=== PATIENT | female | born 1945 | race Caucasian/White ===

== ENCOUNTER 2019-08-23 00:38 | Outpatient (CLI) | payer MEDICARE, BC, SELFPAY ==
--- NOTE | 2019-08-23 09:50 | DI.MAMMO_ITS ---
EXAM: MAMMO SCREENING CLINICAL HISTORY: SCREENING, Z12.31 TECHNIQUE: Mammograms were interpreted according to the usual protocol including computer analysis w [employer] CAD system, tomosynthesis and C-view imaging. COMPARISON: 2009 and 2016 FINDINGS: The breasts are composed of heterogeneously dense fibroglandular densities, Breast Density category C . No suspicious masses or suspicious microcalcifications are seen. No skin thickening or abnormal axillary lymph nodes are seen. A biopsy marker clip is again seen in the superior right breast. There has been no significant change from prior exams. IMPRESSION: BIRADS Category 1, negative mammogram. Yearly screening mammography is recommended. BREAST DENSITY: The mammogram demonstrates the patient's breast tissue is dense. Dense breast tissue is very common and is not abnormal but dense breast tissue can make it harder to find cancer on a ma mmogram. Also, dense breast tissue may increase breast cancer risk. This information about the result of the mammogram report was provided to the patient to raise their awareness. Use this report when y ou speak with the patient about their risks for breast cancer, which includes their family history. A t that time, you may recommend additional screening tests (Ultrasound or MRI) as they might be useful based on their risk. A negative radiographic report should not delay biopsy if a dominant or clinically suspicious mass is present. Up to ten percent of cancers are not identified on mammography. A negative report may reinforce clinical impression. Adenosis and dense breasts may obscure an underlying neoplasm. False positive reports average 6 to 10%.
== END 2019-08-23 00:58 ==
PROVIDERS: PCP Nurse Practitioner; Visit Provider Nurse Practitioner Family
DX: Z12.31 Encounter for screening mammogram for malignant neoplasm of breast (principal)
CPT/HCPCS: 77063; 77067

== ENCOUNTER 2020-02-06 14:45 | Outpatient (REF) | payer MEDICARE, BC, SELFPAY ==
[2020-02-06 20:11] LABS: HCT 39.4 % (36.0-46.0); MCH 28.7 pg (27.0-33.0); MPV 12.4 fL (8.0-11.0); Platelet Count 238 10^3/uL (130-400); RBC 4.53 10^6/uL (3.93-5.22); RDW 12.5 % (11.7-14.6); WBC 4.74 10^3/uL (4.4-10.8)
[2020-02-06 20:49] LABS: ALT 24 U/L (14-59); AST 22 U/L (15-37); Albumin 3.9 g/dL (3.4-5.0); Alkaline Phosphatase 115 U/L (46-116); Anion Gap 9.3 mmol/L (3-11); BUN 15 mg/dL (7-18); Bilirubin, Total 0.3 mg/dL (0.2-1.0); CO2 25.7 mmol/L (21.0-32.0); CREATININE 0.77 mg/dL (0.55-1.02); Calcium 9.1 mg/dL (8.5-10.1); Chloride 103 mmol/L (98-107); Glucose 94 mg/dL (74-106); Potassium 4.4 mmol/L (3.5-5.1); Sodium 138 mmol/L (136-145); TSH (W/Ref FT4) 2.19 uIU/mL (0.36-3.74)
[2020-02-08 14:58] LABS: SARS-CoV-2 RNA Undetected (Undetected); SARS-CoV-2 Specimen Source Nasopharynx
== END 2020-02-06 15:05 ==
LOC: NCHCN 14:45
PROVIDERS: PCP Nurse Practitioner; Visit Provider Nurse Practitioner Family
DX: R53.83 Other fatigue (principal)
CPT/HCPCS: 80053; 85027; U0003; 84443

== ENCOUNTER 2020-04-10 01:12 | Outpatient (CLI) | payer MEDICARE, BC, SELFPAY ==
--- NOTE | 2020-04-10 09:10 | DI.RAD_ITS ---
EXAM: XR HIP PELVIS ADULT BL CLINICAL HISTORY: BILAT OA,M16.0 TECHNIQUE: COMPARISON: No exams were available for comparison FINDINGS: Three views were obtained. There is moderate narrowing of the cartilaginous joint spaces of both hip s, left greater than right. There are moderate marginal osteophytes of the acetabula and femoral hea ds bilaterally. There is subchondral sclerosis femoral heads bilaterally and there is some roughenin g of the articular cortex of the left femoral head. There is cyst formation of the left femoral head and acetabulum. IMPRESSION: Moderate degenerative changes right hip, moderate to severe DJD left hip. RADIATION DOSE DELIVERED: Total DLP
--- NOTE | 2020-04-10 09:19 | DI.RAD_ITS ---
EXAM: XR LUMBAR SPINE COMPLETE CLINICAL HISTORY: ACUTE LOW BACK PAIN,M54.5 TECHNIQUE: COMPARISON: No exams were available for comparison FINDINGS: Six views were obtained. There are mild degenerative changes of both SI joints. The intervertebral disc spaces of the lumbar spine appear fairly well maintained. There are mild hypertrophic degenerat rogelio changes involving facet joints throughout the lumbar region bilaterally. Minimal endplate hypert rophic changes of the vertebral bodies noted as well. There is no evidence of spondylolysis or spond ylolisthesis. There is no evidence of fracture. IMPRESSION: Mild DJD of the lumbar spine. RADIATION DOSE DELIVERED: Total DLP
== END 2020-04-10 01:32 ==
PROVIDERS: PCP Nurse Practitioner; Visit Provider Internal Medicine
DX: M47.816 Spondylosis without myelopathy or radiculopathy, lumbar region (principal); M54.5 Low back pain; M16.0 Bilateral primary osteoarthritis of hip
CPT/HCPCS: 73521; 72110

== ENCOUNTER → 2020-05-12 08:56 | Outpatient (BNVA) | payer MEDICARE, BC, SELFPAY | PROVIDERS: PCP Nurse Practitioner; Referring Provider Nurse Practitioner; Visit Provider Student in an Organized Health Care Education/Training Program | DX: M16.12 Unilateral primary osteoarthritis, left hip (principal); M16.11 Unilateral primary osteoarthritis, right hip | CPT/HCPCS: 99203; 99214 ==

== ENCOUNTER 2020-06-17 14:14 | Outpatient (CLI) | payer MEDICARE, BC, SELFPAY ==
--- NOTE | 2020-06-17 14:15 | DI.RAD_ITS ---
EXAM: XR PELVIS AP CLINICAL HISTORY: preoperative. TECHNIQUE: 2D digital imaging was performed. COMPARISON: CR XR HIP PELVIS ADULT BL from 04/10/2020 FINDINGS: BONES: No acute fracture is present. No bony destructive lesion is seen. JOINTS: No dislocation present. Moderately severe degenerative changes are seen in the left hip myra cterized by joint space narrowing, subchondral sclerosis and cysts and periarticular spurring. Mild degenerative changes are seen in the right hip with joint space narrowing and subchondral sclerosis. The visualized sacroiliac joints and symphysis pubis are unremarkable. SOFT TISSUE: Normal. IMPRESSION: Stable degenerative changes of the hips bilaterally. DATA REPOSITORY: RADIATION DOSE DELIVERED:
== END 2020-06-17 14:34 ==
PROVIDERS: PCP Nurse Practitioner; Referring Provider Nurse Practitioner; Visit Provider Physician Assistant Surgical
DX: M16.0 Bilateral primary osteoarthritis of hip (principal)
CPT/HCPCS: 72170

== ENCOUNTER 2020-06-20 02:10 | Outpatient (CLI) | payer MEDICARE, BC, SELFPAY ==
[2020-06-20 11:09] LABS: HCT 42.7 % (36.0-46.0); HGB 13.8 g/dL (11.2-15.7); MCH 28.5 pg (27.0-33.0); MCHC 32.3 % (32.0-36.0); MCV 88.2 fL (80-95); MPV 11.7 fL (8.0-11.0); Platelet Count 254 10^3/uL (130-400); RBC 4.84 10^6/uL (3.93-5.22); RDW 12.4 % (11.7-14.6); RDW-SD 40.4 fL; WBC 5.66 10^3/uL (4.4-10.8)
[2020-06-20 11:48] LABS: Anion Gap 7.2 mmol/L (3-11); BUN 16 mg/dL (7-18); CO2 27.8 mmol/L (21.0-32.0); CREATININE 0.89 mg/dL (0.55-1.02); Calcium 9.7 mg/dL (8.5-10.1); Chloride 103 mmol/L (98-107); Glucose 95 mg/dL (74-106); Potassium 4.6 mmol/L (3.5-5.1); Sodium 138 mmol/L (136-145)
[2020-06-23 12:21] LABS: COVID-19 RT-PCR Result NEGATIVE (Negative)
== END 2020-06-20 02:30 ==
PROVIDERS: PCP Nurse Practitioner; Visit Provider Student in an Organized Health Care Education/Training Program
DX: M25.552 Pain in left hip (principal); M16.12 Unilateral primary osteoarthritis, left hip; Z11.59 Encounter for screening for other viral diseases; Z01.818 Encounter for other preprocedural examination; Z01.812 Encounter for preprocedural laboratory examination
CPT/HCPCS: 36415; 80048; 85027; 86850; 86900; 86901; U0003

== ENCOUNTER 2020-06-25 06:01 | Day surgery (SDC) | payer MEDICARE, BC, SELFPAY ==
[2020-06-25] VITALS (11 sets, daily range): BP systolic 87–122; BP diastolic 50–76; PULSE 60–72; RESP 14–18; TEMP 36.2–36.8; O2SAT 96–100
[2020-06-25] MEDS: Celecoxib 200 MG CAP 400 MG PO (06:34)
[2020-06-25] MEDS: Acetaminophen 500 MG TAB 1000 MG PO ×2 (06:34→13:14)
[2020-06-25] MEDS: Lactated Ringers 1,000 ML 80 ML IV (06:47)
--- NOTE | 2020-06-25 07:24 | PDOC.DSDIS_ITS ---
Discharge Plan Disposition Patient Disposition: HOME Condition: Good Discharge Details Reason For Visit: L RAÚL Attending Provider: Gage Vera Primary Care Provider: Hayley Castellon Home Meds and New Rx's Prescriptions: New celecoxib [Celebrex] 200 mg capsule 200 mg PO BID Qty: 60 RF: 0 aspirin 81 mg tablet,delayed release (DR/EC) 81 mg PO BID Qty: 60 RF: 0 acetaminophen [Tylenol Extra Strength] 500 mg tablet 500 mg PO Q6H PRNQty: 90 RF: 0 pantoprazole [Protonix] 40 mg tablet,delayed release (DR/EC) 40 mg PO DAILY Qty: 30 RF: 0 oxycodone 5 mg tablet 5 mg PO Q4H PRNQty: 18 RF: 0 docusate sodium [Colace] 100 mg capsule 100 mg PO BID PRNQty: 10 RF: 0 Continued loratadine 10 mg capsule 10 mg PO DAILY RF: 0 biotin 5,000 mcg Tablet, Sublingual 5,000 mcg SUBLINGUAL DAILY RF: 0 Discontinued aspirin 325 mg Tablet 325 mg PO DAILY PRNRF: 0 naproxen sodium [Aleve] 220 mg Tablet 220 mg PO BID PRNRF: 0 Discharge Instructions Additional Instructions: Total Hip Discharge Instructions Activity: The most important activity is to walk. You should try to take short walks a few times a day. You have no restrictions on movement or positioning, but do not try to force what you do. You will find some stiffness and weakness with hip flexion (lifting your knee). Do not try to strengthen this too early, continue to practice walking and stairs and this will come. - Outpatient physical therapy can be helpful to help return you to a normal gait and improve your flexibility and strength. This can start around 2 weeks. For some patients, it?s not necessary. Usually this is determined at the time of discharge or at the first post-operative visit. - You should wear the JOSR hose on both legs for 2 weeks. Dressing: Keep the surgical dressing in place for at least one week. After the first week it may be removed and replace with light gauze and tape or nothing. It may get wet after 3 days but avoid soaking the dressing. If it gets wet, just lightly pat dry. It is important to always keep some gauze between skin folds, especially when you are sitting. Spend some time with the wound exposed when you are lying flat as the incision does wrinkle onto itself. Medications: - You should take Tylenol and an anti-inflammatory Celebrex as your primary pain control medications. If the Celebrex is too expensive or not covered, please call the office for another alternative (Advil/Ibuprofen or Naproxen/Aleve). - You have been prescribed a stronger pain medication Oxycodone for breakthrough pain, take as needed as prescribed. - You have also been prescribed a stomach acid reduction agent Pantoprozole to help reduce stomach acid and reflux. - You will be taking Aspirin 81mg twice a day for DVT prevention unless instructed otherwise. - If you have constipation you should take Colace or Miralax (both [id number]). It takes most people 3-4 days to have a bowel movement. Follow-up: 2 weeks If you have any acute concerns or questions, please do not hesitate to contact the office at [phone]. You may contact Dr. Vera with any questions after hours through the hospital at [phone] or on his cell phone at [phone]. Referrals: Gage Vera MD [ [facility] STAFF PHYSICIAN] - Equipment/Supplies: Walker Activity:: Activity as Tolerated Diet:: As Tolerated Discharge Orders Discharge Orders: Discharge Order (Routine); Ordered 06/25/20 Ordered By: Gage Vera DS: Diagnosis Discharge Diagnosis (1) Degenerative joint disease of left hip: Status: Chronic
[2020-06-25] MEDS: ceFAZolin 2 GM/50 ML BAG IVPB (07:43)
[2020-06-25] MEDS: Ketorolac 30 MG/ML VIAL (08:42)
[2020-06-25] MEDS: Bupivacaine 0.25% Pres-Free 30 ML VIAL (08:42)
--- NOTE | 2020-06-25 08:45 | DI.RAD_ITS ---
EXAM: XR HIP LT IN OR CLINICAL HISTORY: Degenerative joint disease of left hip TECHNIQUE: 2D and realtime digital imaging was performed. CONTRAST MATERIAL: Refer to procedure report. COMPARISON: No exams were available for comparison FINDINGS: Fluoroscopy was provided for Dr. Vera during the performance of a left total hip arthroplasty. Please refer to the procedure report for complete details. Fluoro time: 38.4 seconds IMPRESSION: RADIATION DOSE DELIVERED:
--- NOTE | 2020-06-25 08:52 | ROE_ITS ---
Date of service: 06/25/20 Time of Service: 08:52 Operative Note Operative Note DATE OF PROCEDURE: 06/25/20 PRE-OP DIAGNOSIS: Left Hip Osteoarthritis POST-OP DIAGNOSIS: same PROCEDURE: Left Anterior Total Hip Arthroplasty SURGEON: Gage Vera PAMPHLET DISTRIBUTOR: Alyce Bryson ANESTHESIA: spinal ESTIMATED BLOOD LOSS: 250 PATHOLOGY: none sent COMPLICATIONS: Other (Partial tearing of the deep surface of the anterior aspect of the abductor musculature) Patient was transported to: PACU Patient's condition: stable Implants: 1. Depuy [place] Acetabular Component, 50mm 2. Depuy Acetabular Liner, [id number] 3. Depuy Corail Standard 125 Degree Collared Femoral Stem, Size 14 4. Depuy Altrx Ceramic Femoral Head, Size 32+5mm Indications: I have seen Oleg in clinic for symptoms of hip arthritis, confirmed with radiographic findings. Oleg has exhausted nonoperative methods and was having significant limitations in daily function and desired better function and less pain. I discussed the technical details of a hip replacement. I explained the risks of the procedure to include, but not limited to, bleeding, infection, pain, stiffness, fracture, damage to nerves and vessels, damage to muscles and tendons, loosening, instability, leg length inequality, need for repeat procedure, blood clot and cardiopulmonary demise. Despite these risks, she elected to proceed. Findings: There was significant signs of arthritis throughout the hip. Procedure Description: Oleg was greeted in the preoperative holding area where the correct side was identified and marked. The consent was reviewed with the patient and signed. The history and physical was updated. All questions were answered. She was taken back to the operating room. A spinal anesthestic was then administered. The feet were wrapped with cast padding and Coban and then placed into the boot liners and then into the boots. Care was taken to protect the skin and make sure the heels were fully down and the boots were stable. The patient was then positioned onto the HANA table. Both legs were held in a neutral position. SCDs were applied. The patient was then slid down onto a peroneal post. A preoperative AP pelvis was obtained to serve as a reference for determining leg lengths. Prophylactic antibiotics in the form of Cefazolin were administered. 1g of Tranxemic Acid was given intravenously within 30 minutes of incision. The left leg was then prepped with Chloraprep and draped in a standard fashion. A second prep with Chloraprep was performed prior to placement of a shower-curtain type drape with Iodine impregnated skin protection. A timeout to confirm correct identity, side and site, procedure, allergies, anesthesia, and medical concerns was performed. An obliquely oriented incision was made starting lateral to the ASIS and running distal over the Tensor Fascia Kanwal (TFL) muscle belly toward the fibular head, approximately 10cm. The skin and soft tissue was dissected sharply, through Moni?s fascia, and to the fascia of the TFL. With the fascia and superior border of the IT band identified, the fascia was incised with a new knife just above any perforators from the IT band. The TFL muscle belly was bluntly dissected away from the fascia and moved laterally. The fat between TFL and rectus was identified to ensure the dissection was not within the TFL. Blunt dissection created space between abductors and the capsule and retractor was placed over the lateral femoral neck. The fibers of the rectus femoris tendon were identified and these were freed from the anterior capsule. A second cobra retractor was placed around the medial femoral neck. The TFL was further retracted laterally to show the deep fascia. Careful dissection through this layer identified three main crossing vessels of the lateral femoral circumflex. These were cauterized in multiple locations and then cut without any noticeable bleeding. The TFL was further released bluntly from the deep fascia to expose anterior hip capsule and fat The Kishore orthopaedic retractor was then placed beneath the TFL and against sartorius and medial soft tissues to protect and retract the soft tissues. A T-capsulotomy was then performed starting at the superior lateral acetabulum and moving distally to the intertrochanteric ridge. These capsular flaps were tagged with a No. 1 Ethibond and elevated from within. The capsular flaps were released to the shoulder of the lateral neck and to the lesser trochanter to give excellent visualization of the proximal femur. A neck osteotomy was performed using an oscillating saw based on preoperative templates. This cut started in the shoulder and of the lateral neck and exited medially. The saw was at all times directed medially to avoid injury to the greater trochanter. 6cm of traction was applied to the leg and the osteotomy opened. The femoral head was removed with a corkscrew, making sure to protect the TFL on its exit. Traction was released after head removal. This was measured on the back table to determine the starting reamer size. Portions of the rectus obscuring visualization were minimally elevated off the superior acetabulum. An anterior retractor was placed over the anterior wall between capsule and labrum and attached to the Gripper retraction system. The femur was rotated to 90 degrees and medial capsule was fully released until the lesser trochanter was palpable and visible; the femur was returned to 30 degrees. A posterior retractor was placed similarly between capsule and labrum. This provided excellent visualization. The contents of the cotyloid fossa were removed with electrocautery and the labrum was removed with a knife. There was a notable floor osteophyte. There was significant chondromalacia of the superior acetabulum. Acetabular reaming began with a 47mm reamer. This first reaming was directed anterior to posterior and medial to get down to the true floor. This was inspected and reamed until the true floor was reached. The anterior retractor was then released and entry and exit was provided by traction on the capsular flaps. I then reamed sequentially up to a 50mm reamer where good fit was obt ained. The larger reamers were oriented based on anatomical reference of the anterior and lateral norris to ensure proper abduction and anteversion. Positioning and size was confirmed with the fluoroscopy. A 50mm Depuy [place] acetabular component was selected. The acetabulum was reamed around the periphery with the selected acetabular size to prevent a rim fit. The deep tissues were irrigated. The acetabular component was then impacted in a position of about 40-45 degrees of abduction and 15-20 degrees of anteversion, using the patient?s anatomy as the ultimate landmark. Fluoroscopy was used to confirm this. There was excellent central supply manager of the acetabular component and the inserting handle was removed. The acetabular liner, Depuy [id number] polyethylene liner, was inserted and lined u p with the tines of the acetabular component. There was no soft tissue interposition. The liner was then impacted into position and confirmed to be well-seated. A portion of the edouard-articular cocktail was then injected around the acetabulum into the capsule and periosteum. This cocktail consisted of 50cc of 0.25% Bupivicaine and 20cc of Exparel and 30mg of Ketorolac. The leg was rotated to 120 degrees. Any remaining medial capsule was released until the lesser trochanter was easily palpable. A retractor was placed medially. The lateral capsule was further released into the shoulder to allow access to the greater trochanter. A Loco retractor was placed over the greater trochanter which allowed the trochanter to flip in front of the capsule for excellent exposure. The leg was brought down into maximal extension and 20 degrees of adduction while ensuring there was no impingement on the acetabulum. Any remnant capsule within the trochanter was released. Piriformis and obt urator externis were identified and protected. There was excellent access to the proximal femur. The lateral neck remnant was removed with a rongeur. A blunt canal probe was used to identify the canal and trajectory for later broaching. A box osteotome initiated the broach course. A small curved rasp and a curved curette were used to work laterally. Broaching then began with a size 8 Corail broach. This was inserted manually around the trochanter and into the canal before mallet blows. The broach was seated to a few millimeters below the cut level based on the neck cut and the preoperative template. Sequential broaching was continued with the [employer] pneumatic broaching device until a tight fit was obtained with good rotational control of the femur. A trial standard 125 neck was inserted along with a +5 trial head. The leg was brought out of extension and adduction and then reduced with traction and internal rotation. The leg was stable anteriorly in a position of 30 degrees of extension and 90 degrees of external rotation. Fluoroscopy was used to ensure there was no fracture and the stem was seated well. Leg lengths were checked with an AP pelvis and pelvic reference points. [employer] navigation system was used to confirm appropriate positioning and leg length and offset. Once content with the desired offset and leg lengths, the leg was brought back into extension, external rotation and adduction. The periosteum and surrounding tissue was injected with remaining portion of the edouard-articular cocktail. The proximal femur was irrigated as well as the deep tissues. At this time it was noticed that the deep aspect of the abductor musculature had a tear, likely from the Loco retractor. The more superficial portions of the muscle and the tendon attachments to the greater trochanter were intact. The muscel was not significantly deranged but had a break in the muscle fibers which remained adherent to the more superficial fibers so these were left in place. The Mpayyuy Corail standard collared 125 degree stem, size 14, was then manually inserted into the proximal femur making sure to control rotation. It was then malleted into position with light blows, giving breaks to allow bone expansion and decrease risk of fracture. The selected Depuy Altrx Ceramic Head, size 32+5mm, was then placed onto the clean and dry trunnion and secured with impaction onto the tapered fit. The leg was brought back out of extension and adduction and reduced with traction and internal rotation. Stability was confirmed with no shuck at 90 degrees of external rotation and 30 degrees of extension. No impingement through range of motion arc. Final x-ray images were obtained with fluoroscopy to confirm adequate positioning and no intraoperative fracture. The deep tissues were thoroughly irrigated with Irrisept chlorhexadine solution. The second dose of TXA 1g was administered intravenously.The capsule was then reapproximated with the previously placed Ethibond sutures. The TFL fascia was finally closed with a No. 2 Stratafix, barbed suture. Deep tissues were then reapproximated with 0 Vicryl and a running 2-0 Vicryl. The skin was closed with a running 4-0 Monocryl in a subcuticular fashion. This was reinforced with skin glue. A Mepilex silver dressing was applied. At the end of the case, all counts were correct. Oleg was transferred to the hospital bed without difficulty and suffering some partial tearing of the deep abductors which should have little functional consequence. Oleg has a good prognosis. Physical therapy will start today and without restrictions, weight-bearing as tolerated. Aspirin 81mg BID will be used for DVT prophylaxis.
[2020-06-25] MEDS: fentaNYL 100 MCG/2 ML VIAL IVP (09:39)
[2020-06-25] MEDS: oxyCODONE 5 MG TAB PO (10:47)
--- NOTE | 2020-06-25 11:33 | IN_ITS ---
Date of service: 06/25/20 Time of Service: 11:33 PT Notes Visit Reasons: L RAÚL Physical Therapy Inpatient Initial Evaluation Date: 06/25/2020 Referring Doctor: Gage Vera MD PT Orders: PT CONSULT: Status post Ortho surgery Precautions: Fall. Standard. WBAT on the left LE. Patient Profile/Admitting Diagnosis: Oleg is a 74-year-old female with degenerative joint disease of the left hip and is status post left anterior total hip arthroplasty on postoperative day 0. PMHX: Medical History Degenerative joint disease of left hip Degenerative joint disease of right hip Social History/Home Situation: Patient lives with son and son's family in a mother?in?law apartment in [place], [place] with no steps to enter. She does say that she has 3 steps to get into the living room of his son's house with one rail to hold onto. She is independent with all aspects of ADLs prior to surgery. Equipment Owned/DME: Has a 4-wheeled walker Subjective: Pleasant and cooperative. Agreeable to PT consult. Stated that she has some remaining numbness in bilateral gluteal areas and her thighs. Reports discomfort in the inner area of her left thigh. Complained of sudden cons iderable lightheadedness when she stood up and walked from bed to reclining chair. Agreeable to being seen again later in the afternoon for longer distance walking and stair negotiation. Objective: General Observation: Supine in bed. Nurse Victoria present throughout evaluation. IV access in left UE. Leeroy Ag dressing over surgical incision. Mental Status: Alert and oriented x4 Pain: Reports some discomfort in the left hip with weight bearing Vital Signs: Blood pressure became soft when patient attempted to stand up from sitting with systolic blood pressure in the low 90s and diastolic blood pressure in the mid 70s as measured manually by nurse Victoria ROM: Right Upper Extremity: Shoulder Flexion WFL. Shoulder abduction WFL. Elbow flexion WFL. Wrist flexion WFL. Opening and closing of hand WFL. Left Upper Extremity: Shoulder Flexion WFL. Shoulder abduction WFL. Elbow flexion WFL. Wrist flexion WFL. Opening and closing of hand WFL. Right Lower Extremity: Hip flexion WFL. Hip abduction WFL. Knee flexion WFL. Ankle dorsiflexion WFL. Ankle plantarflexion WFL. Left Lower Extremity: Hip flexion WFL. Hip abduction WFL. Knee flexion WFL. Ankle dorsiflexion WFL. Ankle plantarflexion WFL. Strength: Right Upper Extremity: Shoulder flexors 5/5. Shoulder abductors 5/5. Elbow flexors 5/5. Elbow extensors 5/5. Cutter Hot Knife strong. Left Upper Extremity: Shoulder flexors 5/5. Shoulder abductors 5/5. Elbow flexors 5/5. Elbow extensors 5/5. Cutter Hot Knife strong. Right Lower Extremity: Hip flexors 5/5. Hip abductors 5/5. Knee flexors 5/5. Knee extensors 5/5. Ankle dorsiflexors 5/5. Ankle plantarflexors 5/5. Left Lower Extremity: Hip flexors 4/5. Hip abductors 4/5. Knee flexors 4/5. Knee extensors 4/5. Ankle dorsiflexors 5/5. Ankle plantarflexors 5/5. Sensation: Intact as to pain and pressure on bilateral lower extremities. Bed Mobility/Transfers: Supine to sit SBA with HOB 30 degrees Sit to stand minimal assist with complaints of increased lightheadedness upon standing up Stand to sit minimal assist with complaints of increased lightheadedness upon standing up Chair to bed minimal assist with complaints of increased lightheadedness upon standing up Gait: Guided patient through level surface ambulation of up to 12 feet using a front wheel walker with WBAT on the left LE requiring minimal assist with step through gait pattern but with with complaints of increased lightheadedness and with decreased bony. Ambulation distance limited to a very short one due to reduction in blood pressure. Patient is agreeable to having a second PT visit this afternoon for ambulation in the hallway and with stairs prior to discharge. THERA EX: Instructed patient on seated level exercises consisting of LAQs x15, seated hip flexion x 15, seated hip abduction without increase in discomfort or pain. Balance: Static Sitting: Normal Dynamic Sitting: Normal Static Standing: Fair Dynamic Standing: Fair Special Tests: Mobility Limitations Standardized Measure [facility] AM-PAC 6 clicks Basic Mobility Inpatient Short Form: Raw Score: 20 CMS Score: 36% deficit Informed Consent/Education: Patient instructed in purpose of PT consult and plan of care. Assessment: Oleg requires the use of a front wheeled walker for all transfer and ambulation task performance in order to maximize independence and reduce fall risk at home. She will have very good support from her family and friends as she recovers. She will benefit from outpatient physical therapy services in order to facilitate return to independent mobility ADL performance without an assistive device and for rehabbing of the left hip postop. Patient presents with clinical signs and symptoms consistent with current/admitting diagnoses that have resulted to mobility limitations, gait instability, generalized weakness, and impairment of motor control as demonstrated by the following impairment level findings: 1. Decreased strength to left hip major muscle groups 2. Impaired standing balance 3. Impaired activity tolerance 4. Lightheadedness Impairments are contributing to the following functional limitations: 1. Inability to safely ambulate without assistive device and physical assistance 2. Increase completion time for mobility ADL performance 3. Increased fall risk 4. Inability to negotiate steps alone safely Patient is assessed as a 06408 moderate complexity based on the following: History: 74-year-old female with impairment level findings, functional limitations, and past medical history as indicated above Examination: Demonstrable impairment in strength, balance, and mobility level with underlying impairments and functional limitations as documented above Presentation:Evolving Decision Makin moderate complexity Goals: Goals X 1 more afternoon treatment session 1. Supine-Sit independent 2. Sit-Supine independent 3. Sit-Stand supervision 4. Stand-Sit supervision 5. Bed-Chair supervision 6. Chair-Bed supervision 7. Supervision gait on level surface with use of least restrictive device for at least 300 feet without report of pain nor dyspnea 8. Good static and dynamic standing balance/tolerance Plan of Care/Treatment Plan: Patient will be seen for 1 more treatment session prior to this afternoon's discharge Plan of care has been reviewed with the HEALTH PROFESSIONAL providing the service under Physical Therapy direction. Initiate Physical Therapy intervention for strengthening, bed mobility, transfers, gait, stairs, balance training, use of assistive device. DISCHARGE RECOMMENDATIONS: To home when medically cleared by orthopedic surgeon. Outpatient physical therapy services in order to facilitate return to premorbid independent level without an assistive device. TREATMENT CODE/TIME: 9716 2 x 30 minutes, 9753 0 x 12 minutes beginning at 11:33 AM. Thank you for the opportunity to participate in the care of this patient. Pebbles Abreu PT, DPT, CLT [facility] [place], [place]
--- NOTE | 2020-06-26 08:32 | PT.INTREAT ---
Date of service: 06/25/20 Time of Service: 13:30 PT Notes Visit Reasons: L RAÚL Inpatient Physical Therapy Treatment Note [facility] Date: 06/25/2020 PRECAUTIONS: Fall, WBAT L SUBJECTIVE: Oleg reports that she is feeling better and is not lightheaded. She is pleasant and agreeable to participating in PT. OBJECTIVE: PAIN: No c/o pain BED MOBILITY/TRANSFERS Sit-stand: S Stand-sit: S GAIT Assistive Device: FWW Weight bearing: WBAT L Assist: SBA Distance: 50' Deviation: Step-through THEREX: Patient was instructed in a LE strengthening program, while in a seated position, as per flow sheet. ASSESSMENT: Patient tolerated session well without complaint. She was able to tolerate a progression in gait training, with FWW support and SBA without c/o lightheadedness. PLAN: Discharge to home with FWW. TREATMENT CODE/TIME: 20 minutes; [id number]
--- NOTE | 2020-06-26 09:08 | PT.INDS ---
Date of service: 06/26/20 PT Notes Visit Reasons: L RAÚL Physical Therapy Inpatient Discharge Summary Date: 06/25/2020 Dates of service:06/25/2020 only This is a clinical summary of care provided on the duration of dates listed above. No charge was made in the completion of this documentation. Referring Doctor: Gage Vera MD PT Orders: PT CONSULT: Status post Ortho surgery Precautions: Fall. Standard. WBAT on the left LE. Patient Profile/Admitting Diagnosis: Oleg is a 74-year-old female with degenerative joint disease of the left hip and is status post left anterior total hip arthroplasty on postoperative day 0. PMHX: Medical History Degenerative joint disease of left hip Degenerative joint disease of right hip Social History/Home Situation: Patient lives with son and son's family in a mother?in?law apartment in [place], [place] with no steps to enter. She does say that she has 3 steps to get into the living room of his son's house with one rail to hold onto. She is independent with all aspects of ADLs prior to surgery. Equipment Owned/DME: Has a 4-wheeled walker Subjective: NT. See most recent MACHINE OPERATOR HOP PICKER notes. Objective: General Observation: NT. See most recent MACHINE OPERATOR HOP PICKER notes. Mental Status: NT. See most recent MACHINE OPERATOR HOP PICKER notes. Pain: NT. See most recent MACHINE OPERATOR HOP PICKER notes. ROM: Right Upper Extremity: Shoulder Flexion WFL. Shoulder abduction WFL. Elbow flexion WFL. Wrist flexion WFL. Opening and closing of hand WFL. Left Upper Extremity: Shoulder Flexion WFL. Shoulder abduction WFL. Elbow flexion WFL. Wrist flexion WFL. Opening and closing of hand WFL. Right Lower Extremity: Hip flexion WFL. Hip abduction WFL. Knee flexion WFL. Ankle dorsiflexion WFL. Ankle plantarflexion WFL. Left Lower Extremity: Hip flexion WFL. Hip abduction WFL. Knee flexion WFL. Ankle dorsiflexion WFL. Ankle plantarflexion WFL. Strength: Right Upper Extremity: Shoulder flexors 5/5. Shoulder abductors 5/5. Elbow flexors 5/5. Elbow extensors 5/5. Electric Motorman strong. Left Upper Extremity: Shoulder flexors 5/5. Shoulder abductors 5/5. Elbow flexors 5/5. Elbow extensors 5/5. Electric Motorman strong. Right Lower Extremity: Hip flexors 5/5. Hip abductors 5/5. Knee flexors 5/5. Knee extensors 5/5. Ankle dorsiflexors 5/5. Ankle plantarflexors 5/5. Left Lower Extremity: Hip flexors 4/5. Hip abductors 4/5. Knee flexors 4/5. Knee extensors 4/5. Ankle dorsiflexors 5/5. Ankle plantarflexors 5/5. Sensation: Intact as to pain and pressure on bilateral lower extremities. Bed Mobility/Transfers: Supine to sit supervision Sit to stand supervision Stand to sit supervision Chair to bed supervision Gait: Guided patient through level surface ambulation of up to 50 little concern feet using a front wheel walker with WBAT on the left LE requiring minimal assist with step through gait pattern but with with complaints of increased lightheadedness and with decreased bony. Ambulation distance limited to a very short one due to reduction in blood pressure. Patient is agreeable to having a second PT visit this afternoon for ambulation in the hallway and with stairs prior to discharge. Balance: Static Sitting: Normal Dynamic Sitting: Normal Static Standing: Fair Dynamic Standing: Fair Assessment: Oleg requires the use of a front wheeled walker for all transfer and ambulation task performance in order to maximize independence and reduce fall risk at home. She will have very good support from her family and friends as she recovers. She will benefit from outpatient physical therapy services in order to facilitate return to independent mobility ADL performance without an assistive device and for rehabbing of the left hip postop. Patient continues to present with clinical signs and symptoms consistent with current/admitting diagnoses that have resulted to mobility limitations, gait instability, generalized weakness, and impairment of motor control as demonstrated by the following impairment level findings: 1. Decreased strength to left hip major muscle groups 2. Impaired standing balance 3. Impaired activity tolerance Impairments are are continuing to contribute to the following functional limitations: 1. Inability to safely ambulate without assistive device very little progress min 2. Increase completion time for mobility ADL performance 3. Increased fall risk 4. Inability to negotiate steps alone safely Goals: Goals X 1 more afternoon treatment session 1. Supine-Sit independent MET 2. Sit-Supine independent MET 3. Sit-Stand supervision MET 4. Stand-Sit supervision MET 5. Bed-Chair supervision MET 6. Chair-Bed supervision MET 7. Supervision gait on level surface with use of least restrictive device for at least 300 feet without report of pain nor dyspnea NOT MET 8. Good static and dynamic standing balance/tolerance MET DISCHARGE RECOMMENDATIONS: To home when medically cleared by orthopedic surgeon. Outpatient physical therapy services in order to facilitate return to premorbid independent level without an assistive device. TREATMENT CODE/TIME: NE Thank you for the opportunity to participate in the care of this patient. Pebbles Abreu PT, DPT, CLT [facility] [place], [place]
== END 2020-06-25 17:12 | disposition home or self-care (01) ==
PROVIDERS: PCP Nurse Practitioner; Visit Provider Student in an Organized Health Care Education/Training Program
PROC: (CPT 27130; principal; 2020-06-25 07:30)
DX: M16.12 Unilateral primary osteoarthritis, left hip (principal); Z96.642 Presence of left artificial hip joint; M25.552 Pain in left hip; M96.820 Accidental puncture and laceration of a musculoskeletal structure during a musculoskeletal system procedure
CPT/HCPCS: 27130; 20985; C1776; 97162; 97530; 73501; J0690; J1100; J1885; J2405; J3010

== ENCOUNTER 2020-07-14 13:05 | Outpatient (CLI) | payer MEDICARE, BC, SELFPAY ==
--- NOTE | 2020-07-14 11:25 | DI.RAD_ITS ---
EXAM: XR HIP LT COMPLETE AP PELVIS CLINICAL HISTORY: f/u L RAÚL. TECHNIQUE: 2D digital imaging was performed. COMPARISON: CR XR PELVIS AP from 06/17/2020 FINDINGS: Stable position of the components of the recently placed left hip prosthesis. No fracture or looseni ng evident. IMPRESSION: DATA REPOSITORY: RADIATION DOSE DELIVERED:
== END 2020-07-14 13:25 ==
PROVIDERS: PCP Nurse Practitioner; Referring Provider Nurse Practitioner; Visit Provider Student in an Organized Health Care Education/Training Program
DX: Z96.642 Presence of left artificial hip joint (principal); Z47.1 Aftercare following joint replacement surgery
CPT/HCPCS: 73502

== ENCOUNTER 2021-06-22 08:53 | Outpatient (CLI) | payer MEDICARE, BC, SELFPAY ==
--- NOTE | 2021-06-22 08:45 | DI.RAD_ITS ---
Exam(s) XR HIP LT AP LAT ONLY EXAM: XR HIP LT AP LAT ONLY INDICATION: annual f/u L RAÚL. COMPARISON: CR XR HIP LT COMPLETE AP PELVIS from 07/14/2020 TECHNIQUE: 2D digital imaging was performed. FINDINGS: There has been no change in the alignment of the left hip prosthesis. There are no abnormal surround ing bony lucencies. DATA REPOSITORY: RADIATION DOSE DELIVERED:
== END 2021-06-22 08:54 | disposition home or self-care (01) ==
LOC: DIORS 08:53
PROVIDERS: PCP Nurse Practitioner; Referring Provider Nurse Practitioner; Visit Provider Student in an Organized Health Care Education/Training Program
DX: Z47.1 Aftercare following joint replacement surgery; Z96.642 Presence of left artificial hip joint
CPT/HCPCS: 99212; 73502

== ENCOUNTER → 2022-04-29 02:55 | Outpatient (CLI) | payer MEDICARE, BC, SELFPAY ==
--- NOTE | 2022-04-29 13:45 | DI.RAD_ITS ---
Exam(s) XR FOOT LT COMPLETE EXAM: XR FOOT LT COMPLETE CLINICAL HISTORY: LT FOOT PAIN, M79.672. TECHNIQUE: 2D digital imaging was performed of the left foot. Three images were obtained. AP, obli que and lateral views were obtained. COMPARISON: No exams were available for comparison FINDINGS: BONES: No acute fracture is present. No bony destructive lesion is seen. JOINTS: No dislocation present. SOFT TISSUE: Normal. IMPRESSION: No acute abnormality. DATA REPOSITORY: RADIATION DOSE DELIVERED:
--- NOTE | 2022-04-29 14:00 | DI.DEXA_ITS ---
Exam(s) XR DEXA BONE DENSITY W/WO NACHO EXAM: XR DEXA BONE DENSITY W/WO NACHO CLINICAL HISTORY: ASYMPTOMATIC POSTMENOPAUSAL STATUS, Z78.0 TECHNIQUE: COMPARISON: Comparison examination is 08/17/2016. FINDINGS: Lateral Spine Image: Unremarkable. No compression deformities identified. Right hip: Total T-Score: -2.8 Total Z-Score: -1.0 T- and Z-scores: Findings are consistent with osteoporosis and high fracture risk. Lumbar Spine: Total T-Score: -4.4 . this compares to -4.7 on the prior examination. Total Z-Score: -2.0 T- and Z-scores: Findings are consistent with osteoporosis. IMPRESSION: Findings of osteoporosis in the right hip and lumbar spine.
== END ==
PROVIDERS: PCP Nurse Practitioner; Visit Provider Nurse Practitioner Family
DX: Z78.0 Asymptomatic menopausal state (principal); Z13.820 Encounter for screening for osteoporosis; M81.0 Age-related osteoporosis without current pathological fracture; M79.672 Pain in left foot
CPT/HCPCS: 77080; 73630

== ENCOUNTER 2022-08-16 00:12 | Outpatient (CLI) | payer MEDICARE, BC, SELFPAY ==
--- NOTE | 2022-08-16 12:15 | DI.MAMMO_ITS ---
Exam(s) MAMMO SCREENING EXAM: MAMMO SCREENING CLINICAL HISTORY: SCREENING, Z12.31 TECHNIQUE: Mammograms were interpreted according to the usual protocol including computer analysis w Note[employer]ick CAD system, tomosynthesis and C-view imaging. COMPARISON: 2016 and 2019 FINDINGS: The breasts are composed of heterogeneously dense fibroglandular densities, Breast Density category C . No suspicious masses or suspicious microcalcifications are seen. A biopsy marker clip is again noted in the superior right breast. Vascular calcifications are noted. No skin thickening or abnormal axillary lymph nodes are seen. There has been no significant change from prior exams. IMPRESSION: BI-RADS Category 1, Negative mammogram. Yearly screening mammography is recommended. Breast Density Category C, heterogeneously Dense. The mammogram demonstrates the patient's breast tissue is dense. Dense breast tissue is very common a nd is not abnormal but dense breast tissue can make it harder to find cancer on a mammogram. Also, de nse breast tissue may increase breast cancer risk. This information about the result of the mammogram report was provided to the patient to raise their awareness. Use this report when you speak with the patient about their risks for breast cancer, which includes their family history. At that time, you may recommend additional screening tests (Ultrasound or MRI) as they might be useful based on their r isk. A negative radiographic report should not delay biopsy if a dominant or clinically suspicious mass is present. Up to ten percent of cancers are not identified on mammography. A negative report may reinforce clinical impression. Adenosis and dense breasts may obscure an underlying neoplasm. False positive reports average 6 to 10%.
== END 2022-08-16 00:32 ==
LOC: DI 00:13
PROVIDERS: PCP Nurse Practitioner Family; Visit Provider Nurse Practitioner Family
DX: Z12.31 Encounter for screening mammogram for malignant neoplasm of breast (principal); R92.8 Other abnormal and inconclusive findings on diagnostic imaging of breast
CPT/HCPCS: 77063; 77067

== ENCOUNTER 2023-01-27 19:40 | Outpatient (REF) | payer MEDICARE, BC, SELFPAY ==
[2023-01-27 17:16] LABS: Abs Immature Grans 0.01 10^3/uL (0.0-0.06); Absolute Lymphocyte Count 1.46 10^3/uL (1.2-3.4); Absolute Monocyte Count 0.55 10^3/uL (0.1-0.8); Absolute Neutrophil Count 3.83 10^3/uL (1.2-6.7); Basophils % 1.6; Eosinophils % 3.3; HCT 40.4 % (36.0-46.0); HGB 13.4 g/dL (11.2-15.7); Immature Grans % 0.2; Lymphocytes % 23.7; MCH 28.9 pg (27.0-33.0); MCHC 33.2 % (32.0-36.0); MCV 87 fL (80-95); MPV 12.3 fL (8.0-11.0); Monocytes % 8.9; Neutrophils % 62.3; Platelet Count 237 10^3/uL (130-400); RBC 4.63 10^6/uL (3.93-5.22); RDW 12.7 % (11.7-14.6); RDW-SD 40.5 fL; WBC 6.15 10^3/uL (4.4-10.8)
[2023-01-27 17:25] LABS: Iron 92 ug/dL (50-170); Total Iron Binding Capacity 315 ug/dL (250-450); Transferrin Sat 29 % (15-50)
[2023-01-27 17:46] LABS: Vitamin D 25 Total 25.5 ng/mL (30-100)
[2023-01-27 17:57] LABS: ALT 18 U/L (14-59); AST 16 U/L (15-37); Albumin 4.2 g/dL (3.4-5.0); Alkaline Phosphatase 107 U/L (46-116); Anion Gap 6.6 mmol/L (3-11); BUN 19 mg/dL (7-18); Bilirubin, Total 0.5 mg/dL (0.2-1.0); CO2 28.4 mmol/L (21.0-32.0); CREATININE 0.8 mg/dL (0.55-1.02); Calcium 9.2 mg/dL (8.5-10.1); Chloride 102 mmol/L (98-107); Estimated GFR 76.31 (mL/min/1.73m2); Ferritin 96 ng/mL (8-252); Glucose 83 mg/dL (74-106); Magnesium 2.1 mg/dL (1.8-2.4); Potassium 4.7 mmol/L (3.5-5.1); Sodium 137 mmol/L (136-145); TSH (W/Ref FT4) 2.86 uIU/mL (0.36-3.74); Total Protein 7.3 g/dL (6.4-8.2); Vitamin B12 237 pg/mL (193-986)
[2023-01-27 19:18] LABS: NT-proBNP 150 pg/mL (<300)
== END 2023-01-27 19:41 | disposition home or self-care (01) ==
LOC: NCHCN 19:40
PROVIDERS: PCP Nurse Practitioner Family; Visit Provider Nurse Practitioner Family
DX: R53.83 Other fatigue; R06.02 Shortness of breath; I47.1 Supraventricular tachycardia; M81.0 Age-related osteoporosis without current pathological fracture
CPT/HCPCS: 80053; 82306; 82607; 82728; 83540; 83550; 83735; 83880; 84443; 85025

== ENCOUNTER 2023-02-07 03:03 | Outpatient (CLI) | payer MEDICARE, BC, SELFPAY ==
[2023-02-07] MEDS: Inhaler, Assist Device 1 EACH MC (16:38)
[2023-02-07] MEDS: Albuterol HFA 18 GM 200 PUFF INH IH (16:38)
--- NOTE | 2023-02-08 10:21 | W.PFT ---
Date of service: 02/07/23 Time of Service: 15:19 Pulmonary Function Test Result Indications: Dyspnea Interpretation Spirometry: There is no airflow limitation. No significant bronchodilator response. Lung Volumes: Normal lung volumes Diffusion Capacity: Decreased diffusion Airway Pressure: Normal airways resistance. Impression Isolated diffusion deficit. This can represent emphysema, interstitial lung disease or pulmonary vascular disease (pulmonary hypertension). Clinical Correlation therefore is recommended.
== END 2023-02-07 03:04 | disposition home or self-care (01) ==
LOC: RT 03:03
PROVIDERS: PCP Nurse Practitioner Family; Visit Provider Nurse Practitioner Family
DX: R06.02 Shortness of breath (principal)
CPT/HCPCS: 94060; 94726; 94729

== ENCOUNTER 2023-02-09 11:50 | Outpatient (REF) | payer MEDICARE, BC, SELFPAY | END 2023-02-09 11:51 | disposition home or self-care (01) | LOC: NCHCN 11:50 | PROVIDERS: PCP Nurse Practitioner Family; Visit Provider Nurse Practitioner Family | DX: I95.1 Orthostatic hypotension (principal) | CPT/HCPCS: 82533 ==

== ENCOUNTER → 2023-03-10 02:53 | Outpatient (CLI) | payer MEDICARE, BC, SELFPAY ==
--- NOTE | 2023-03-10 10:35 | DI.US_ITS ---
APPROVED REPORT EXAM: Comprehensive 2D, Doppler, and color-flow Echocardiogram Patient Location: Out-Patient Wood Ski Maker: Royce Isaacs RDCS (AE) Indications: Orthostatic hypotension, SOB, fatigue Other Information Study Quality: Good Conclusion Normal left ventricular wall thickness and chamber size. Ejection fraction is 55 to 60%. Wall motio n is normal Normal right ventricular size and systolic function Left atrium is mildly dilated. Right atrial size is normal Normal mitral leaflets with mild prolapse. There is moderate mitral regurgitation Normal tricuspid valve with mild regurgitation. Estimated right ventricular systolic pressure is 22 mmHg Dilated ascending aorta measuring 4.1 cm Wall motion Left Ventricle Left ventricle is mildly dilated. The left ventricular systolic function is normal. The left ventricu lar ejection fraction is within the normal range. There is normal left ventricular wall thickness. Th ere is normal LV segmental wall motion. There is no ventricular septal defect visualized. LVEF is 55- 60%. Right Ventricle The right ventricle is normal size. The right ventricular systolic function is normal. The RVSP is 22 .3 mmHg. Atria The left atrium size is mildly dilated The right atrium size is normal. The interatrial septum is int act with no evidence for an atrial septal defect. Aortic Valve Aortic valve is trileaflet. There is no aortic valvular stenosis. Trace to mild aortic regurgitation . Mitral Valve The mitral valve is normal in structure. No evidence of mitral valve stenosis. Moderate mitral regurg itation. Mild mitral valve prolapse. Tricuspid Valve The tricuspid valve is normal in structure. There is no tricuspid valve stenosis. Mild tricuspid regu rgitation. Pulmonic Valve The pulmonary valve is normal in structure. There is no pulmonic valvular stenosis. Trace pulmonic re gurgitation. Great Vessels The aortic root is normal in size. The ascending aorta is moderately dilated. Aortic arch is normal i n caliber. IVC is normal in size and collapses >50% with inspiration. Pericardium There is no pericardial effusion. 2D Dimensions IVSD d PLAX 0.60 cm F: 0.6-1.0 Ao Root d 2.95 cm F: 2.7 - 3.3 LVPW d PLAX 0.65 cm F: 0.6 - 1.0 Ao Asc Diam d 4.10 cm F: 2.3 - 3.1 LVID d PLAX 5.47 cm F: 3.8 - 5.2 LVDs 3.73 cm F: 2.2 - 3.5 LV EF Teichholz 59.4 % FS 31.85 % LV EDV (Teich) 145.5 mL LV ESV (Teich) 59.2 mL Stroke Vol Index (Teich) 51.73 M-Mode TAPSE 2.20 cm (M/F) >1.7 Auto EF LV EDV A4C 81.4 mL LV EDV A2C LV EDV BP LV ESV A4C 35.6 mL LV ESV A2C LV ESV BP LVEF(%) A4C 56.3 % LVEF(%) A2C LVEF(%) BP LV SV A4C 45.8 ml LV SV A2C LV SV BP LV CO A4C 2.8 L/min LV CO A2C LV CO BP HR A4C 60.81 BPM HR A2C LV EDV Index (BP) LV Volumes - Method of Disks (Menjivar's) Single Plane 2D LV Volumes Biplane 2D LV Volumes LV EDV A2C 69.6 mL LV EDV BP Index LV ESV A2C 27.1 mL SV BP LVEF(%) A2C 61.1 % SV Index LA Volume LA Length A4C 5.4 cm LA Length A2C LA Area A4C s 13.58 cm2 LA Area A2C s LA Vol A4C A-L 28.87 mL LA Vol A2C A-L LA Vol Biplane A-L LA Vol A4C MOD 28.0 mL LA Vol A2C MOD LA Vol BP MOD RA Volume RA Area A4C 13.2 cm2 RA ESV A4C (A-L) 34.4mL RA Vol/BSA A4C A-L RA Length A4C 4.3 cm RA ESV A4C (MOD) 33.0mL LV Diastology MV E' medial 0.075 (>0.07 m/s) MV E Vmax 0.73 (0.4-1.3 m/s) MV E/E' MED 9.70 (<14) MV A Vmax 0.60 (0.4-1.3 m/s) MV E' lateral 0.077 (>0.1 m/s) E/A Ratio 1.2 MV E/E' LAT 9.48 (<14) MV E' Average 0.076 m/s MV E/E'(average) 9.59 Aortic Valve AoV Vmax 1.20 m/s LVOT Vmax 1.04 m/s AoV Peak Grad 27.6 mmHg LVOT Peak Grad 4.4 mmHg AoV Area (Vmax) 2.63 cm2 LVOT VTI 0.243 m AoV VTI 0.315 m LVOT Mean Grad 2.2 mmHg AoV Mean Librado. 0.77 m/s LVOT SV 73.21 mL AoV Mean Grad 2.8 mmHg LVOT Diam s 1.95 cm AoV Area (VTI) 2.32 cm2 AV Regurg Peak Gr. 49.50 mmHg Velocity Ratio 0.87 AR Decel [place] 0.8m/sec2 AR DT 4559 msec AR PHT 1322 msec AR Vmax 3.52 m/s Mitral Valve MV DT 215 (160-240 msec) MR Vmax 4.47 m/s MV Vmax TIPS 0.83 m/s MR VTI 1.572 m MV Mean Grad 1.0 (<2mmHg) MR Peak Grad 80.0 mmHg MV VTI 0.361 m MR Mean Grad 60.1 mmHg MR PISA Radius 0.67 cm MR Aliasing Velocity 0.30 m/s Pulmonary Valve PV Vmax 0.84 (0.5-1.5 m/s) RVOT Vmax 0.63 m/s PV Peak Grad 2.8 mmHg RVOT Peak Gr. 1.6 mmHg PV Mean Librado 0.60 m/s RVOT VTI 0.158 m PV Mean Grad 1.7 mmHg RVOT Mean Gr. 0.8 mmHg Tricuspid Valve RA Pressure 3.00 mmHg TR Vmax 2.19 m/s TR Peak Grad 19.2 mmHg RVSP (TR) 22.3 mmHg
--- NOTE | 2023-03-10 11:27 | DI.RAD_ITS ---
Exam(s) XR SHOULDER RT COMPLETE 2+V EXAM: XR SHOULDER RT COMPLETE 2+V CLINICAL HISTORY: RT SHOULDER PAIN, M25.511. TECHNIQUE: 2D digital imaging was performed of the right shoulder. Five images were obtained. AP, Grashey, Y-view and axillary views were obtained. COMPARISON: No exams were available for comparison FINDINGS: BONES: No acute fracture is present. No bony destructive lesion is seen. JOINTS: No dislocation present. The joint spaces are well maintained. SOFT TISSUE: Normal. IMPRESSION: Unremarkable radiographs of the right shoulder. If there is concern for internal derangement, an MRI should be considered for further evaluation. DATA REPOSITORY: RADIATION DOSE DELIVERED:
--- NOTE | 2023-03-10 11:27 | DI.RAD_ITS ---
Exam(s) XR CHEST 2V PA LATERAL EXAM: XR CHEST 2V PA LATERAL CLINICAL HISTORY: HYPOTENSION,I95.1,SOB, R06.02, FATIGUE,R53.83 TECHNIQUE: 2D digital imaging was performed of the chest. Two images were obtained. PA and lateral views were obtained. COMPARISON: No exams were available for comparison FINDINGS: MEDIASTINUM: Normal. HEART: Normal. PULMONARY VASCULATURE: Normal. LUNGS: Clear. PLEURAL SPACE: No pleural effusion or pneumothorax. BONE:Within normal limits for the patient's age. OTHER FINDINGS:Normal. IMPRESSION: No acute pulmonary findings. DATA REPOSITORY: RADIATION DOSE DELIVERED:
== END ==
PROVIDERS: PCP Nurse Practitioner Family; Visit Provider Nurse Practitioner Family
DX: I95.1 Orthostatic hypotension (principal); R06.02 Shortness of breath; R53.83 Other fatigue; M25.511 Pain in right shoulder
CPT/HCPCS: 93306; 71046; 73030

== ENCOUNTER 2023-03-31 05:19 | Outpatient (CLI) | payer MEDICARE, BC, SELFPAY ==
[2023-03-31] MEDS: Methacholine 100 MG VIAL IH (14:51)
--- NOTE | 2023-04-04 15:12 | W.PFT ---
Date of service: 03/31/23 Time of Service: 13:03 Pulmonary Function Test Result Indications: Dyspnea Interpretation Spirometry: No baseline airflow limitation. There was a decrease in FEV1 of 19% with administration of 16mg/mL methacholine Impression Negative methacholine challenge Clinical Correlation therefore is recommended.
== END 2023-03-31 05:20 | disposition home or self-care (01) ==
LOC: RT 05:19
PROVIDERS: PCP Nurse Practitioner Family; Visit Provider Physician Assistant Surgical
DX: R06.00 Dyspnea, unspecified (principal)
CPT/HCPCS: 94060; 94070; J7674

== ENCOUNTER → 2023-04-28 02:11 | Outpatient (CLI) | payer MEDICARE, BC, SELFPAY ==
--- NOTE | 2023-04-28 | DI.MRI_ITS ---
Exam(s) MR UPPER JOINT RT WO EXAM: MR UPPER JOINT RT WO CLINICAL HISTORY: RT SHOULDER PAIN, M25.511. TECHNIQUE: Multiplanar multisequence MRI was performed. COMPARISON: Plain films March 26 FINDINGS: BONES: Nondisplaced subacute fracture greater tuberosity. Marrow edema in the humeral head. JOINTS:The acromioclavicular joint is normal. The acromion is laterally downsloping. The glenohumer al joint is normal. TENDONS: Supraspinatus: High signal within distal anterior supraspinatus tendon without visible focal tear. Infraspinatus: Unremarkable. Subscapularis: Unremarkable. Teres [place]: Unremarkable. Biceps and [place]: Unremarkable. MUSCLES: Unremarkable. GLENOID LABRUM: Unremarkable on this noncontrast examination. SOFT TISSUES: Unremarkable. OTHER: Subacromial and subdeltoid bursae shows some fluid.. IMPRESSION: Nondisplaced subacute fracture at the greater tuberosity. Supraspinatus tendinosis. DATA REPOSITORY:
== END ==
PROVIDERS: PCP Nurse Practitioner Family; Visit Provider Nurse Practitioner Family
DX: S42.254A Nondisplaced fracture of greater tuberosity of right humerus, initial encounter for closed fracture (principal); R06.00 Dyspnea, unspecified; X58.XXXA Exposure to other specified factors, initial encounter
CPT/HCPCS: 73221

== ENCOUNTER → 2023-04-28 02:12 | Outpatient (CLI) | payer MEDICARE, BC, SELFPAY ==
--- NOTE | 2023-04-28 08:10 | DI.CT_ITS ---
Exam(s) CT CHEST WO EXAM: CT CHEST WO CLINICAL HISTORY: continued dyspnea,R06.00 TECHNIQUE: Imaging Protocol: Axial computed tomography images with coronal and sagittal reformatted images were created and reviewed CONTRAST MATERIAL: Intravenous: Omnipaque 350 Contrast volume:structured data ml. COMPARISON: CR XR CHEST 2V PA LATERAL from 03/10/2023 FINDINGS: Pulmonary parenchyma: No consolidation. No dominant measurable mass. Tracheobronchial tree: No bronchiectasis or mucous plugging. Mediastinum and [place]: No dominant adenopathy or fluid collection. Pleura: No effusion. No pneumothorax. Heart: The heart is not dilated. No coronary artery calcifications are seen. Aorta: Ascending aorta 4.2 cm. No visible atherosclerotic changes. Upper abdomen: Unremarkable. Bones: Degenerative changes in the spine. Soft tissues: Unremarkable. IMPRESSION: No acute abnormality. RADIATION DOSE DELIVERED: Total DLP DATA REPOSITORY: All CT scans at this facility are submitted to the National Radiology Data Registry (NRDR) Dose Index Registry (DIR) with the [employer] (A[employer]). RADIATION OPTIMIZATION: All CT scans at this facility use at least one of these dose optimization te chniques: automated exposure control; mA and/or kV adjustment per patient size (includes targeted exa ms where dose is matched to clinical indication); or iterative reconstruction.
== END ==
PROVIDERS: PCP Nurse Practitioner Family; Visit Provider Physician Assistant Surgical
DX: R06.00 Dyspnea, unspecified (principal); S42.251A Displaced fracture of greater tuberosity of right humerus, initial encounter for closed fracture; X58.XXXA Exposure to other specified factors, initial encounter
CPT/HCPCS: 71250; 73221

== ENCOUNTER 2023-05-02 15:59 | Outpatient (REF) | payer MEDICARE, BC, SELFPAY | END 2023-05-02 16:00 | disposition home or self-care (01) | LOC: NCHCN 15:59 | PROVIDERS: PCP Nurse Practitioner Family; Visit Provider Nurse Practitioner Family | DX: R30.0 Dysuria (principal) | CPT/HCPCS: 87086 ==

== ENCOUNTER 2023-05-03 12:58 | Outpatient (RCR) | payer MEDICARE, BC, SELFPAY ==
--- NOTE | 2023-05-03 13:00 | HOLTER_ITS ---
APPROVED REPORT Conclusion This is a 48-hour Holter monitor ordered for orthostatic hypotension Rhythm throughout was sinus. Average heart rate was 68. Minimum was 55, maximum 101 There were rare isolated atrial and ventricular ectopic beats There was no atrial fibrillation, no high-grade AV block, no pauses greater than 3 seconds There was 1 self-limited atrial run, 10 beats in duration No patient symptoms were reported
== END 2023-05-03 23:59 | disposition home or self-care (01) ==
LOC: CARDOPNVT 12:58
PROVIDERS: PCP Nurse Practitioner Family; Visit Provider Nurse Practitioner Family
DX: I95.1 Orthostatic hypotension (principal)
CPT/HCPCS: 93227; 93225; 93226

== ENCOUNTER → 2023-05-04 10:49 | Outpatient (BNVA) | payer MEDICARE, BC, SELFPAY | PROVIDERS: PCP Nurse Practitioner Family; Referring Provider Nurse Practitioner Family; Visit Provider Student in an Organized Health Care Education/Training Program | DX: S42.201D Unspecified fracture of upper end of right humerus, subsequent encounter for fracture with routine healing (principal); W19.XXXD Unspecified fall, subsequent encounter | CPT/HCPCS: 99213 ==

== ENCOUNTER → 2023-05-05 13:48 | Outpatient (BNVA) | payer MEDICARE, BC, SELFPAY | PROVIDERS: PCP Nurse Practitioner Family; Referring Provider Nurse Practitioner Family; Visit Provider Student in an Organized Health Care Education/Training Program | DX: R06.00 Dyspnea, unspecified (principal); R94.2 Abnormal results of pulmonary function studies | CPT/HCPCS: 99214 ==

== ENCOUNTER 2023-05-11 17:01 | Outpatient (RCR) | payer MEDICARE, BC, SELFPAY | END 2023-06-02 23:59 | disposition home or self-care (01) | LOC: CARDOPNVT 17:01 | PROVIDERS: PCP Nurse Practitioner Family; Visit Provider Nurse Practitioner Family | DX: I95.1 Orthostatic hypotension (principal) | CPT/HCPCS: 93227; 93226 ==

== ENCOUNTER 2023-06-08 13:11 | Outpatient (CLI) | payer MEDICARE, BC, SELFPAY ==
--- NOTE | 2023-06-08 10:45 | DI.RAD_ITS ---
Exam(s) XR SHOULDER RT COMPLETE 2+V EXAM: XR SHOULDER RT COMPLETE 2+V CLINICAL HISTORY: f/u right prox humerus fx. TECHNIQUE: 2D digital imaging was performed. COMPARISON: CR XR SHOULDER RT COMPLETE 2+V from 03/10/2023 FINDINGS: Two views. No evidence of fracture nor dislocation. No obvious degenerative changes in the glenohumeral joint. Mild calcification noted in the soft tissues just above the greater tuberosity. Minimal degenerativ e changes in the AC joint. Bone density age-appropriate. No osseous lesions. IMPRESSION: Calcific tendinitis. DATA REPOSITORY: RADIATION DOSE DELIVERED:
== END 2023-06-08 13:12 | disposition home or self-care (01) ==
LOC: DIORS 13:14
PROVIDERS: PCP Nurse Practitioner Family; Referring Provider Nurse Practitioner Family; Visit Provider Student in an Organized Health Care Education/Training Program
DX: S42.201A Unspecified fracture of upper end of right humerus, initial encounter for closed fracture (principal); S42.254D Nondisplaced fracture of greater tuberosity of right humerus, subsequent encounter for fracture with routine healing; X58.XXXD Exposure to other specified factors, subsequent encounter
CPT/HCPCS: 99213; 73030

== ENCOUNTER 2023-08-31 11:41 | Outpatient (CLI) | payer MEDICARE, BC, SELFPAY ==
--- NOTE | 2023-08-31 10:15 | DI.RAD_ITS ---
Exam(s) XR SHOULDER RT COMPLETE 2+V EXAM: XR SHOULDER RT COMPLETE 2+V CLINICAL HISTORY: F/U FRACTURE. TECHNIQUE: 2D digital imaging was performed. Five views. COMPARISON: CR XR SHOULDER RT COMPLETE 2+V from 06/08/2023 FINDINGS: BONES: There has been no change in the alignment of the fracture at the greater tuberosity. No bony destructive lesion is seen. JOINTS: No dislocation present. SOFT TISSUE: Normal. IMPRESSION: Stable fracture alignment. DATA REPOSITORY: RADIATION DOSE DELIVERED:
== END 2023-08-31 11:42 | disposition home or self-care (01) ==
LOC: DIORS 11:41
PROVIDERS: PCP Nurse Practitioner Family; Visit Provider Student in an Organized Health Care Education/Training Program
DX: S42.201D Unspecified fracture of upper end of right humerus, subsequent encounter for fracture with routine healing (principal); X58.XXXD Exposure to other specified factors, subsequent encounter; M67.921 Unspecified disorder of synovium and tendon, right upper arm
CPT/HCPCS: 99213; 73030

== ENCOUNTER 2024-03-22 01:20 | Outpatient (CLI) | payer MEDICARE, BC, SELFPAY ==
--- NOTE | 2024-03-22 08:30 | DI.US_ITS ---
APPROVED REPORT EXAM: Comprehensive 2D, Doppler, and color-flow Echocardiogram Patient Location: Out-Patient Capacity Manager: Nia Guzman RDCS ([place]) Indications: Thoracic aortic ectasia Other Information Study Quality: Adequate Conclusion Normal left ventricular wall thickness and chamber size. Ejection fraction is 60%. Wall motion is n ormal Normal right ventricular size and function Both atria are normal in size Trileaflet aortic valve with mild regurgitation Normal mitral valve with moderate regurgitation Estimated right ventricular systolic pressure is 26 mmHg Ascending aorta measures 4.3 cm Wall motion Left Ventricle The left ventricle is normal size. The left ventricular systolic function is normal. The left ventric ular ejection fraction is within the normal range. There is normal left ventricular wall thickness. T here is normal LV segmental wall motion. There is no ventricular septal defect visualized. LVEF is 60 %. Right Ventricle The right ventricle is normal size. The right ventricular systolic function is normal. Atria The left atrium size is normal. The right atrium size is normal. The interatrial septum is intact wit h no evidence for an atrial septal defect. Aortic Valve The aortic valve is normal in structure. Aortic valve is trileaflet. There is no aortic valvular sten osis. Mild aortic regurgitation. Mitral Valve Mild mitral annular calcification. No evidence of mitral valve stenosis. Moderate mitral regurgitatio n. Tricuspid Valve The tricuspid valve is normal in structure. There is no tricuspid valve stenosis. Mild tricuspid regu rgitation. The RVSP is 26.2 mmHg. Pulmonic Valve The pulmonary valve is normal in structure. There is no pulmonic valvular stenosis. Trace pulmonic re gurgitation. Great Vessels The aortic root is normal in size. Ascending aorta measures 4.3 cm IVC is normal in size and collapse s >50% with inspiration. Pericardium There is no pericardial effusion. 2D Dimensions IVSD d PLAX 0.80 cm F: 0.6-1.0 Ao Root d 2.85 cm F: 2.7 - 3.3 LVPW d PLAX 0.85 cm F: 0.6 - 1.0 Ao Asc Diam d 4.30 cm F: 2.3 - 3.1 LVID d PLAX 4.67 cm F: 3.8 - 5.2 LVDs 3.12 cm F: 2.2 - 3.5 LV EF Teichholz 61.6 % FS 33.07 % LV EDV (Teich) 100.7 mL LV ESV (Teich) 38.6 mL Auto EF LV EDV A4C 88.2 mL LV EDV A2C 121.7 mL LV EDV BP 102.8 mL LV ESV A4C 38.3 mL LV ESV A2C 52.4 mL LV ESV BP 44.0 mL LVEF(%) A4C 56.5 % LVEF(%) A2C 57.0 % LVEF(%) BP 57.2 % LV SV A4C 49.8 ml LV SV A2C 69.3 ml LV SV BP 58.8 ml LV CO A4C 2.8 L/min LV CO A2C 4.0 L/min LV CO BP 3.4 L/min HR A4C 55.56 BPM HR A2C 57.06 BPM LV EDV Index (BP) LA Volume LA Length A4C 4.4 cm LA Length A2C 5.4 cm LA Area A4C s 12.02 cm2 LA Area A2C s 20.99 cm2 LA Vol A4C A-L 28.07 mL LA Vol A2C A-L 69.82 mL LA Vol Biplane A-L 49.0 mL LA Vol/BSA A4C A-L LA Vol/BSA A2C A-L LA Vol/BSA BP A-L 25.9 mL/m2 LA Vol A4C MOD 25.3 mL LA Vol A2C MOD 66.0 mL LA Vol BP MOD 45.0 mL RA Volume RA Area A4C 15.2 cm2 RA ESV A4C (A-L) 42.3mL RA Vol/BSA A4C A-L RA Length A4C 4.6 cm RA ESV A4C (MOD) 42.0mL LV Diastology MV E' medial 0.068 (>0.07 m/s) MV E Vmax 0.70 (0.4-1.3 m/s) MV E/E' MED 10.33 (<14) MV A Vmax 0.80 (0.4-1.3 m/s) E/A Ratio 0.9 Aortic Valve AoV Vmax 1.47 m/s LVOT Vmax 0.95 m/s AoV Peak Grad 44.5 mmHg LVOT Peak Grad 3.6 mmHg AoV Area (Vmax) 2.05 cm2 LVOT VTI 0.214 m AoV VTI 0.357 m LVOT Mean Grad 1.6 mmHg AoV Mean Librado. 0.94 m/s LVOT SV 68.66 mL AoV Mean Grad 4.2 mmHg LVOT Diam s 2.00 cm AoV Area (VTI) 1.92 cm2 AV Regurg Peak Gr. 8.70 mmHg Velocity Ratio 0.65 AR Decel [place] 2.3m/sec2 AR DT 1978 msec AR PHT 574 msec AR Vmax 4.48 m/s Mitral Valve MV DT 183 (160-240 msec) MV Vmax TIPS 0.73 m/s MV Mean Grad 1.0 (<2mmHg) MV VTI 0.329 m Pulmonary Valve PV Vmax 0.84 (0.5-1.5 m/s) RVOT Vmax 0.57 m/s PV Peak Grad 2.8 mmHg RVOT Peak Gr. 1.3 mmHg PV Mean Librado 0.64 m/s RVOT VTI 0.135 m PV Mean Grad 1.8 mmHg RVOT Mean Gr. 0.6 mmHg Tricuspid Valve RA Pressure 3.00 mmHg TR Vmax 2.41 m/s TV S' 0.11 m/s TR Peak Grad 23.1 mmHg RVSP (TR) 26.2 mmHg
== END 2024-03-22 01:40 ==
LOC: DI 01:20
PROVIDERS: PCP Nurse Practitioner Family; Visit Provider Nurse Practitioner Family
DX: I77.810 Thoracic aortic ectasia (principal)
CPT/HCPCS: 93306

== ENCOUNTER 2025-03-07 13:26 | Outpatient (CLI) | payer MEDICARE, BC, SELFPAY ==
--- NOTE | 2025-03-07 08:30 | DI.US_ITS ---
APPROVED REPORT EXAM: Comprehensive 2D, Doppler, and color-flow Echocardiogram Patient Location: Out-Patient Electronic Operator: Nia Guzman RDCS ([place]) Indications: Thoracic aortic ectasia Other Information Study Quality: Adequate Conclusion Normal left ventricular wall thickness and chamber size. Ejection fraction 55 to 60%. Wall motion is normal Normal right ventricular size and function Both atria are normal in size Trileaflet aortic valve with mild regurgitation Normal mitral valve with mild prolapse and mild to moderate regurgitation Mild tricuspid regurgitation. Estimated right ventricular systolic pressure is 28 mmHg Ascending aorta measures 4.22 cm Compared to the previous study of March 2024 there has been no significant change Wall motion Left Ventricle The left ventricle is normal size. The left ventricular systolic function is normal. The left ventricular ejection fraction is within the normal range. There is normal left ventricular wall thickness. There is normal LV segmental wall motion. There is no ventricular septal defect visualized. LVEF is 57%. Right Ventricle The right ventricle is normal size. The right ventricular systolic function is normal. Atria The left atrium size is normal. The right atrium size is normal. The interatrial septum is intact with no evidence for an atrial septal defect. Aortic Valve The aortic valve is normal in structure. Aortic valve is trileaflet. There is no aortic valvular stenosis. Mild aortic regurgitation. Mitral Valve No evidence of mitral valve stenosis. Mild to moderate mitral regurgitation. Mild mitral valve prolapse. Tricuspid Valve The tricuspid valve is normal in structure. There is no tricuspid valve stenosis. Mild tricuspid regurgitation. The RVSP is 27.8 mmHg. Pulmonic Valve The pulmonary valve is normal in structure. There is no pulmonic valvular stenosis. Trace pulmonic regurgitation. Great Vessels The aortic root is normal in size. The ascending aorta is moderately dilated. Aortic arch is normal in caliber. IVC is normal in size and collapses >50% with inspiration. Pericardium There is no pericardial effusion. 2D Dimensions IVSD d PLAX 0.80 cm F: 0.6-1.0 Ao Root d 2.82 cm F: 2.7 - 3.3 LVPW d PLAX 0.80 cm F: 0.6 - 1.0 Ao Asc Diam d 4.22 cm F: 2.3 - 3.1 LVID d PLAX 4.80 cm F: 3.8 - 5.2 LVDs 3.40 cm F: 2.2 - 3.5 LV EF Teichholz 56.4 % FS 29.53 % LV EDV (Teich) 106.5 mL LV ESV (Teich) 46.4 mL M-Mode TAPSE 2.11 cm (M/F) >1.7 Auto EF LV EDV A4C 97.7 mL LV EDV A2C 78.3 mL LV EDV BP 87.4 mL LV ESV A4C 41.3 mL LV ESV A2C 34.3 mL LV ESV BP 37.8 mL LVEF(%) A4C 57.8 % LVEF(%) A2C 56.2 % LVEF(%) BP 56.8 % LV SV A4C 56.4 ml LV SV A2C 44.0 ml LV SV BP 49.6 ml LV CO A4C 3.0 L/min LV CO A2C 2.1 L/min LV CO BP 2.6 L/min HR A4C 53.10 BPM HR A2C 47.94 BPM LV EDV Index (BP) LA Volume LA Length A4C 4.7 cm LA Length A2C 5.5 cm LA Area A4C s 13.94 cm2 LA Area A2C s 20.32 cm2 LA Vol A4C A-L 35.34 mL LA Vol A2C A-L 63.22 mL LA Vol Biplane A-L 51.5 mL LA Vol/BSA A4C A-L LA Vol/BSA A2C A-L LA Vol/BSA BP A-L 31.2 mL/m2 LA Vol A4C MOD 31.5 mL LA Vol A2C MOD 59.7 mL LA Vol BP MOD 47.1 mL RA Volume RA Area A4C 13.0 cm2 RA ESV A4C (A-L) 33.2mL RA Vol/BSA A4C A-L RA Length A4C 4.3 cm RA ESV A4C (MOD) 32.2mL LV Diastology MV E' medial 0.067 (>0.07 m/s) MV E Vmax 0.78 (0.4-1.3 m/s) MV E/E' MED 11.65 (<14) MV A Vmax 0.70 (0.4-1.3 m/s) MV E' lateral 0.071 (>0.1 m/s) E/A Ratio 1.1 MV E/E' LAT 10.92 (<14) MV E' Average 0.069 m/s MV E/E'(average) 11.28 Aortic Valve AoV Vmax 1.22 m/s LVOT Vmax 1.00 m/s AoV Peak Grad 26.8 mmHg LVOT Peak Grad 4.0 mmHg AoV Area (Vmax) 2.28 cm2 LVOT VTI 0.227 m AoV VTI 0.272 m LVOT Mean Grad 1.8 mmHg AoV Mean Librado. 0.82 m/s LVOT SV 63.00 mL AoV Mean Grad 3.1 mmHg LVOT Diam s 1.85 cm AoV Area (VTI) 2.31 cm2 AV Regurg Peak Gr. 5.92 mmHg Velocity Ratio 0.82 AR Decel [place] 0.8m/sec2 AR DT 4441 msec AR PHT 1288 msec AR Vmax 3.45 m/s Mitral Valve MV DT 322 (160-240 msec) MV Vmax TIPS 0.84 m/s MV Mean Grad 0.9 (<2mmHg) MV VTI 0.284 m Pulmonary Valve PV Vmax 0.89 (0.5-1.5 m/s) RVOT Vmax 0.69 m/s PV Peak Grad 3.1 mmHg RVOT Peak Gr. 1.9 mmHg PV Mean [place]ibrado 0.65 m/s RVOT VTI 0.159 m PV Mean Grad 1.9 mmHg RVOT Mean Gr. 1.0 mmHg Tricuspid Valve RA Pressure 3.00 mmHg TR Vmax 2.49 m/s TV S' 0.11 m/s TR Peak Grad 24.7 mmHg RVSP (TR) 27.8 mmHg
== END 2025-03-07 13:46 ==
LOC: DI 13:26
PROVIDERS: PCP Nurse Practitioner Family; Visit Provider Internal Medicine Cardiovascular Disease
DX: I77.810 Thoracic aortic ectasia (principal); I36.0 Nonrheumatic tricuspid (valve) stenosis
CPT/HCPCS: 93306